=== PATIENT | female | born 1975 | race Native Hawaiian/Other Pacific Islander ===

== ENCOUNTER 2017-09-10 10:19 | Outpatient (CLI) | payer OTHER ==
[2017-09-10 11:43] LABS: POTASSIUM 3.2 mmol/L (3.6-5.2); SODIUM 138 mmol/L (136-145)
[2017-09-10 11:57] LABS: PLATELET COUNT 236 K/uL (152-353)
== END 2017-09-10 19:05 | disposition home or self-care (01) ==
LOC: LABW 10:19
PROVIDERS: Family Medicine
DX: I10 Essential (primary) hypertension (principal); E66.01 Morbid (severe) obesity due to excess calories; E03.8 Other specified hypothyroidism; Z83.3 Family history of diabetes mellitus; D64.89 Other specified anemias; R05 Cough; E55.9 Vitamin D deficiency, unspecified; R79.89 Other specified abnormal findings of blood chemistry
CPT/HCPCS: 36415; 80053; 80061; 81000; 82043; 82306; 82570; 83036; 83735; 84439; 84443; 85027

== ENCOUNTER 2019-05-25 17:04 | Emergency (ER) | payer OTHER ==
[~2019-05-25] VITALS: Ht 167.6 cm; Wt 149.7 kg
[2019-05-25 17:09] VITALS: BP 120/88; TEMP 98.8
[2019-05-25] MEDS ORDERED: LISINOP/HCTZ1 TA2 PO (17:29)
[2019-05-25] MEDS ORDERED: ZOLOFT25 MG PO (17:29)
== END 2019-05-25 17:55 | disposition home or self-care (01) ==
LOC: ED 17:04
DX: M77.02 Medial epicondylitis, left elbow (principal); M77.01 Medial epicondylitis, right elbow; M25.532 Pain in left wrist; M25.531 Pain in right wrist
CPT/HCPCS: 96372; 99282; J2930

== ENCOUNTER 2019-06-14 15:36 | Outpatient (CLI) | payer OTHER ==
[~2019-06-14 15:36] MED LIST: LISINOP/HCTZ1 TA2 PO; ZOLOFT25 MG PO
== END 2019-06-14 23:38 | disposition home or self-care (01) ==
LOC: RAD 15:36
DX: M54.5 Low back pain (principal)